=== PATIENT | male | born 1975 | race Caucasian/White ===

== ENCOUNTER 2021-01-17 17:30 | Outpatient (CLI) | payer BC | END 2021-01-17 17:31 | disposition home or self-care (01) | LOC: SLEEPLAB 17:30 | PROVIDERS: ATTEND Otolaryngology Plastic Surgery within the Head & Neck | DX: G47.33 Obstructive sleep apnea (adult) (pediatric) (principal); R53.83 Other fatigue; R09.89 Other specified symptoms and signs involving the circulatory and respiratory systems; R51.9 Headache, unspecified; E66.9 Obesity, unspecified; R06.83 Snoring; Z68.29 Body mass index [BMI] 29.0-29.9, adult | CPT/HCPCS: 95806 ==

== ENCOUNTER 2023-01-13 13:17 | Outpatient (CLI) | payer BC ==
[2023-01-13 14:46] LABS: #Eosinphils 0.1 10x3/uL (0.0-0.5); #Monocytes 0.6 10x3/uL (0.0-1.1); #Neutrophils 4.4 10x3/uL (1.5-8.4); %Basophils 0.5 % (0.0-2.0); %Eosinophils 1.6 % (0.0-6.0); %Lymphocytes 29.6 % (18.0-47.0); %Monocytes 8.2 % (0.0-10.0); Hematocrit 45.1 % (38.8-50.0); Hemoglobin 15.7 g/dL (13.5-17.5); Mean Corpuscular HGB CONC 34.8 g/dL (32.0-36.0); Mean Corpuscular Hemoglobin 30.5 pg (27.0-33.0); Mean Corpuscular Volume 87.6 fl (81.2-95.1); Mean Platelet Volume 9.4 fl (7.4-10.4); Platelet Count 279 10x3/uL (150-450); RBC Distribution Width 12.1 % (11.5-14.5); Red Blood Cell (RBC) Count 5.15 10x6/uL (4.32-5.72); White Blood Cell (WBC) Count 7.3 10x3/uL (3.5-10.5)
[2023-01-13 14:52] LABS: ALT (SGPT) 55 U/L (8-55); AST (SGOT) 22 U/L (5-34); Albumin 4.3 g/dL (3.5-5.0); Alkaline Phosphatase 56 U/L (40-110); Anion Gap 13 mmol/L (10-20); BUN (Urea Nitrogen) 15 mg/dL (8.9-20.6); Bilirubin, Total 0.5 mg/dL (0.2-1.2); Calc. Creatinine Clearance 0 mL/min (70-130); Calcium 9.2 mg/dL (7.8-10.44); Carbon Dioxide 22 mmol/L (22-29); Chloride 108 mmol/L (98-107); Estimated GFR 106; Globulin 2.4 g/dL (2.4-3.5); Glucose 119 mg/dL (70-105); Protein, Total 6.7 g/dL (6.0-8.3); Sodium 139 mmol/L (136-145)
== END 2023-01-13 13:18 | disposition home or self-care (01) ==
LOC: LABBT 13:17
PROVIDERS: ATTEND Surgery
DX: Z01.818 Encounter for other preprocedural examination (principal); L72.3 Sebaceous cyst
CPT/HCPCS: 80053; 85025; 93005; 93010

== ENCOUNTER 2023-01-20 08:44 | Day surgery (SDC) | payer BC ==
[2023-01-13 13:44] VITALS: BMI 24.8
[2023-01-20] MEDS ORDERED: CEFAZOLIN 2 GM VIAL ONE (13:37)
[2023-01-20] MEDS ORDERED: Sodium Chloride 0.9% 100 ML ONE (13:37)
[2023-01-20] MEDS ORDERED: Midazolam HCl 2 mg/2 ml Vial ONE (13:37)
[2023-01-20] MEDS ORDERED: Bupivacaine 0.25% HCL 30 ML VIAL ONE (13:44)
[2023-01-20] MEDS ORDERED: EPINEPHrine 1 MG/ML VIAL ONE (13:44)
[2023-01-20] MEDS ORDERED: PROPOFOL 40 ML ONE (13:53)
[2023-01-20] MEDS ORDERED: Dexamethasone 4 mg/ml Vial ONE (13:53)
[2023-01-20] MEDS ORDERED: Lidocaine 1% PF 5 ML VIAL ONE (13:53)
[2023-01-20] MEDS ORDERED: fentaNYL PF 100 MCG/2 ML SYRINGE ONE (13:53)
[2023-01-20] MEDS ORDERED: Ondansetron PF 4 MG/2 ML Vial ONE (13:53)
[2023-01-20] MEDS ORDERED: Ketorolac Tromethamine 30 MG/ML VIAL ONE (14:19)
[2023-01-20] MEDS ORDERED: ePHEDrine Sulfate 50 MG/10 ML VIAL ONE (14:19)
== END 2023-01-20 15:58 | disposition home or self-care (01) ==
LOC: SDC 08:44
PROVIDERS: ATTEND Surgery
PROC: 0HB9XZZ Excision of Perineum Skin, External Approach (ICD-10-PCS; principal; 2023-01-20)
DX: L72.3 Sebaceous cyst (principal); F98.8 Other specified behavioral and emotional disorders with onset usually occurring in childhood and adolescence; Z79.899 Other long term (current) drug therapy; Z88.5 Allergy status to narcotic agent
CPT/HCPCS: 88304; J0171; J1100; J1885; J2250; J2405; J2704; J3490; S0020